=== PATIENT | female | born 1980 | race African-American/Black ===

== ENCOUNTER 2016-07-10 11:29 | Emergency (ER) | payer MEDICAID ==
[~2016-07-10] VITALS: Ht 170.2 cm; Wt 104.3 kg
[2016-07-10 11:48] VITALS: BP 123/84
[2016-07-10] MEDS ORDERED: NKM (11:49)
[2016-07-10] MEDS ORDERED: Acetaminophen 500mg (ES) tab ORAL ONE (12:30)
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
--- NOTE | 2016-07-10 14:43 | Diagnostic Imaging Report ---
Indication: Pain Comparison: None Findings: 2 views of the sternum performed. The views are suboptimal. No obvious fracture identified. Impression: Limited examination showing no definite fracture.
--- NOTE | 2016-07-10 15:31 | Diagnostic Imaging Report ---
Indication: Back pain Technique: Continuous helical transaxial imaging of the lumbar spine was obtained from the lung bases to the pubic symphysis. No IV contrast was administered. Coronal 2-D reformats were also obtained. Study obtained in a Siemens sensation [address] Total Dose length Product (DLP): [address] Dose Index Volume (CTDIvol): 21 mGy Comparison: None Findings: There is no evidence of an acute fracture or malalignment. Height and configuration of the vertebral bodies and intervertebral discs are within normal limits. The facets are unremarkable. There is no soft tissue swelling. Impression: Negative lumbar spine CT The CT scanner at [facility] is accredited by the [employer] and the scans are performed using protocols designed to limit radiation exposure to as low as reasonably achievable to attain images of sufficient resolution adequate for diagnostic evaluation.
[2016-07-10 15:32] VITALS: BP 119/81
[2016-07-10] MEDS ORDERED: TYLENOL EXTRA500 MG ORAL (15:32)
--- NOTE | 2016-07-18 12:00 | Diagnostic Imaging Report ---
Indication: Pain Comparison: None Findings: 3 views of the right foot were obtained. No acute fractures, malalignment, erosions or periostitis are identified. Bone mineralization is within normal limits. Soft tissues are unremarkable. There is a mild hallux valgus deformity which is chronic.. Impression: No acute injury
== END 2016-07-10 15:48 | disposition home or self-care (01) ==
LOC: EMR 12:55
DX: S90.31XA Contusion of right foot, initial encounter (principal); S20.20XA Contusion of thorax, unspecified, initial encounter; M54.5 Low back pain; J45.909 Unspecified asthma, uncomplicated; V43.52XA Car driver injured in collision with other type car in traffic accident, initial encounter; Y92.410 Unspecified street and highway as the place of occurrence of the external cause; Y99.8 Other external cause status
CPT/HCPCS: 71120; 72131; 81025; 99284